=== PATIENT | female | born 2000 | race Two or more races ===

== ENCOUNTER 2022-11-06 23:52 | Emergency (ER) | payer OTHER, SELFPAY ==
[2022-11-07 00:36] VITALS: BP 123/81; PULSE 86; RESP 16; TEMP 36.9; O2SAT 97; BMI 20.6
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
[2022-11-07 06:19] VITALS: BP 102/54; PULSE 82; RESP 16; TEMP 36.6; O2SAT 96
--- NOTE | 2022-11-07 06:20 | PC.NURSE ---
Patient slept through the night, no distress observed/reported, Ceftin 500 mg one time order was administered for asymptomatic UTI, care consult ordered/pending evaluation, VSS, mood depressed and affect congruent to mood, tearful at time, patient reported to provider suicidal thought, patient is currently not on any medication, behavior pleasant and non concerning, will continue to monitor.
--- NOTE | 2022-11-07 15:20 | PC.NURSE ---
resting quietly in bed, respirations even and unlabored.
--- NOTE | 2022-11-07 19:12 | MHC.CARE ---
Patient was accepted to [facility], eta 9pm. Patient is aware and reported she will be transported via her boyfriend. Address and contact information provided.
[2022-11-07 19:14] VITALS: BP 104/58; PULSE 58; RESP 17; TEMP 36.7; O2SAT 98
== END 2022-11-07 19:50 | disposition home or self-care (01) ==
PROVIDERS: Emergency Provider Emergency Medicine Emergency Medical Services
DX: R45.851 Suicidal ideations (principal); N39.0 Urinary tract infection, site not specified; R45.88 Nonsuicidal self-harm; Z63.79 Other stressful life events affecting family and household; Z62.820 Parent-biological child conflict
CPT/HCPCS: 36415; 80053; 80307; 81001; 81025; 85025; 99284; S9485